=== PATIENT | male | born 1960 | race Caucasian/White ===

== ENCOUNTER 2018-03-07 10:47 | Day surgery (SDC) | payer OTHER ==
[~2018-03-07] VITALS: Ht 175.3 cm; Wt 85.8 kg
[~2018-03-07 10:47] MED LIST: ACEBUTCAFT PO; AEROECLIPSE II1 EACH MC; ALBU3IS INH; ALBU90OI6 INH; ALBU90OI61 INH; ATOR40TA PO; AZIT250 PO; BENZ.5 PO; BENZ100A PO; BENZ2 PO; BUSP10 PO; CETI10 PO; CHOL10002 PO; CLIN300 PO; CLON1 PO; CODGUAEL PO; CYCL10 PO; Cough Syru100 MG/5 M PO; Crutch1 EACH MISC; DIAZ5 PO; DOXY100T53 PO; ERGO50000 PO; ESCI10 PO; FLUO10 PO; FLURBIPROFEN PO; FLUSAL2505 IH; FLUSAL5005 IH; GABA100 PO; HYDACE25S PR; HYDACE5 PO; HYDACE5325 PO; IBUP600 PO; IBUP800 PO; INSDET100 SUBQ; INSLI100I SUBQ; IPRAIS NEB; Imitrex100 MG PO; KETO10; KETO10 PO; LAMO25 PO; LAVAP17G PO; LORA.5 PO; LORA2 PO; MELO7.5 PO; METF500 PO; METO10 PO; METPRE4DP PO; MOM PO; MUPI2TO TOP; Mobic7.5 MG PO; NAPR500 PO; OLAN2.5 PO; OLAN5 PO; OMEP20ER PO; OMEP40CA12 PO; ONDA4ODT MM; OXYACE5T PO; OXYGEN; PHENO30 PO; PHENO60 PO; PHENYTOIN PO; PRAV20 PO; PRED20 PO; PREG100 PO; PREG50 PO; PREG75 PO; PROC10 PO; PRODEXEL PO; PROM25 PO; PROP60 PO; RANI150 PO; RISP1 PO; RISP2 PO; SUCR1 PO; SUDOGEST; SUDOGEST PO; SULTRIDS PO; SUMA25; SUMA25 PO; SUMATRIPTAN; TAMS.4ER PO; TELM40 PO; TOPI25 PO; TRAM50 PO; TRIHYD253A PO; TRIHYD253B PO; Tylenol325 MG PO; Ultram50 MG PO; Zithromax250 MG PO; [UNRECOGNIZED DRUG - OTHER]; [UNRECOGNIZED DRUG - OTHER] PO; [UNRECOGNIZED DRUG - OTHER] PO; [UNRECOGNIZED DRUG - REMARK]
[2018-03-07] MEDS ORDERED: VALACYCLOVIR500 MG (11:30)
== END 2018-03-07 13:00 | disposition home or self-care (01) ==
LOC: ORSCSDS 10:47
PROVIDERS: Internal Medicine Gastroenterology
PROC: 0DBH8ZX Excision of Cecum, Via Natural or Artificial Opening Endoscopic, Diagnostic (ICD-10-PCS; principal; 2018-03-07 12:15)
DX: R93.3 Abnormal findings on diagnostic imaging of other parts of digestive tract (principal); D12.0 Benign neoplasm of cecum; K57.30 Diverticulosis of large intestine without perforation or abscess without bleeding; K64.8 Other hemorrhoids; B18.2 Chronic viral hepatitis C; J44.9 Chronic obstructive pulmonary disease, unspecified; K21.9 Gastro-esophageal reflux disease without esophagitis; I10 Essential (primary) hypertension; E11.9 Type 2 diabetes mellitus without complications; E78.5 Hyperlipidemia, unspecified; Z87.891 Personal history of nicotine dependence; Z79.84 Long term (current) use of oral hypoglycemic drugs; Z79.899 Other long term (current) drug therapy
CPT/HCPCS: 82947; 88305

== ENCOUNTER 2018-04-11 11:08 | Day surgery (SDC) | payer OTHER ==
[~2018-04-11] VITALS: Ht 172.7 cm; Wt 83.5 kg
[~2018-04-11 11:08] MED LIST changes: +VALACYCLOVIR500 MG
== END 2018-04-11 12:24 | disposition home or self-care (01) ==
LOC: ORSCSDS 11:08
PROVIDERS: Internal Medicine Gastroenterology
PROC: 0DJ08ZZ Inspection of Upper Intestinal Tract, Via Natural or Artificial Opening Endoscopic (ICD-10-PCS; principal; 2018-04-11 12:15)
DX: R11.2 Nausea with vomiting, unspecified (principal); K20.9 Esophagitis, unspecified; K44.9 Diaphragmatic hernia without obstruction or gangrene; R93.8 Abnormal findings on diagnostic imaging of other specified body structures; B19.20 Unspecified viral hepatitis C without hepatic coma; K21.9 Gastro-esophageal reflux disease without esophagitis; E78.5 Hyperlipidemia, unspecified; E11.9 Type 2 diabetes mellitus without complications; I10 Essential (primary) hypertension; J44.9 Chronic obstructive pulmonary disease, unspecified; Z87.891 Personal history of nicotine dependence; Z79.4 Long term (current) use of insulin; Z79.899 Other long term (current) drug therapy
CPT/HCPCS: 82947

== ENCOUNTER → 2022-03-02 | Outpatient (CLI) | payer OTHER ==
[2022-03-02 15:24] LABS: Adenovirus F 40/41 Not Detected (NOT DETECT); Astrovirus Not Detected (NOT DETECT); Campylobacter Sp Not Detected (NOT DETECT); Cryptosporidium Not Detected (NOT DETECT); Cyclospora Cayetanensis Not Detected (NOT DETECT); E. Coli O157 Not Detected (NOT DETECT); Entamoeba Histolytica Not Detected (NOT DETECT); Enteroaggregative E. coli-EAEC Not Detected (NOT DETECT); Enteropathogenic E. coli-EPEC Not Detected (NOT DETECT); Enterotoxigenic E. coli-ETEC Not Detected (NOT DETECT); Giardia Lamblia Not Detected (NOT DETECT); Norovirus GI/GII Not Detected (NOT DETECT); Plesiomonas Shigelloides Not Detected (NOT DETECT); Rotavirus A Not Detected (NOT DETECT); Salmonella Sp Not Detected (NOT DETECT); Sapovirus Not Detected (NOT DETECT); Shiga Toxin-prod E. coli-STEC Not Detected (NOT DETECT); Shigella/Enteroin E. coli-EIEC Not Detected (NOT DETECT); Vibrio Cholerae Not Detected (NOT DETECT); Vibrio Sp Not Detected (NOT DETECT); Yersinia Enterocolitica Not Detected (NOT DETECT)
== END ==
LOC: LAB 13:18 → LAB SHORT 13:18
PROVIDERS: Physician Assistant Surgical
DX: R19.5 Other fecal abnormalities (principal)
CPT/HCPCS: 87507

== ENCOUNTER → 2023-11-25 | Outpatient (CLI) | payer OTHER ==
[2023-11-25 08:22] LABS: Source, Urine Clean Catch
[2023-11-25 09:57] LABS: Hematocrit 44.9 % (37.0-53.0); Hemoglobin 15.2 g/dL (13.5-17.5); Mean Corpuscular HGB 32.3 pg (26.0-34.0); Mean Corpuscular HGB Conc 33.9 g/dL (31.5-36.5); Mean Corpuscular Volume 95 fL (80-100); Mean Platelet Volume 10.9 fL (9.1-12.4); Platelet Count 252 K/mm3 (150-400); RDW Coefficient Variation 13.2 % (11.7-14.2); RDW Standard Deviation 47.3 fL (35.1-46.3); Red Blood Cell Count 4.71 M/mm3 (4.30-5.90); White Blood Cell Count 6.96 K/mm3 (4.00-11.30)
[2023-11-25 10:07] LABS: Albumin, Blood 4.2 g/dL (3.4-5.0); Albumin/Globulin Ratio 0.8 (0.8-1.8); Bilirubin, Direct 0.2 mg/dL (0.0-0.3); Bilirubin, Indirect 0.4 mg/dL (0.1-0.7); Bilirubin, Total 0.6 mg/dL (0.1-1.0); Bun/Creatinine Ratio 20.6 (12.0-20.0); Calcium, Blood 9.5 mg/dL (8.5-10.1); Creatinine, Blood 0.73 mg/dL (0.60-1.20); Globulin, Blood 5.2 g/dL (2.2-4.0); Phosphorus, Blood 2.5 mg/dL (2.5-4.9); Potassium, Blood 4.2 mmol/L (3.5-5.5); Total Protein, Blood 9.4 g/dL (6.4-8.2)
[2023-11-25 10:29] LABS: BASOPHILS PERCENT MAN 0 % (0-2); EOSINOPHILS PERCENT MAN 0 % (0-6); LYMPHOCYTES ABSOLUTE MAN 2.29 K/mm3 (0.84-5.20); LYMPHOCYTES PERCENT MAN 33 % (21-46); MONOCYTES ABSOLUTE MAN 0.62 K/mm3 (0.16-1.47); MONOCYTES PERCENT MAN 9 % (4-13); NEUTROPHILS ABSOLUTE MAN 4.03 K/mm3 (1.96-9.15); SEG NEUTROPHILS PERCENT MAN 58 % (41-73); TOTAL CELLS COUNTED 100
[2023-11-25 10:40] LABS: Bacteria Rare /hpf; Mucus Light (0-Heavy); Red Blood Cells, Urine 0-2 /hpf (0-2); Squamous Epithelial Cells Not Seen /hpf (Few); White Blood Cells, Urine 0-2 /hpf (0-5)
== END ==
LOC: LAB 08:16 → LAB SHORT 08:16
PROVIDERS: Nurse Practitioner
DX: M54.50 Low back pain, unspecified (principal); R10.9 Unspecified abdominal pain; R30.0 Dysuria; Z86.19 Personal history of other infectious and parasitic diseases
CPT/HCPCS: 80053; 81015; 82248; 84100; 85007; 85027; 87086